=== PATIENT | female | born 1945 | race Caucasian/White ===

== ENCOUNTER → 2017-09-04 | Outpatient (CLI) | payer MEDICARE ==
[~2017-09-04] MED LIST: AMLO5TAB2 PO; ASCO10004 PO; ASPI-496 PO; ASPI-515 PO; ASPI-621 PO; ASPI325T17 PO; ATEN100T PO; CARV-39 PO; CELEBREX PO; CHOL10002 PO; GABAPENTIN PO; HYDR-3240 PO; IRBE1TAB13 PO; OLME40TA12 PO; OMEPRAZOLE PO; OXYB10TA PO; OXYC-302 PO; SIMV40TA3 PO; TYLENOL PO
[2017-09-04 11:40] LABS: MICROSCOPIC NOT IND
[2017-09-04 11:47] LABS: CULTURE INDICATED? NO
[2017-09-04 11:50] LABS: ALBUMIN 3.3 g/dL (3.4-5.0); ANION GAP 6 mmol/L (5-15); CALCIUM 8.6 mg/dL (8.5-10.1); CHLORIDE 108 mmol/L (98-107)
[2017-09-04 11:54] LABS: ALANINE AMINOTRANSFERASE 32 U/L (12-78); ALKALINE PHOSPHATASE 75 U/L (45-117); BILIRUBIN,TOTAL 1.2 mg/dL (0.2-1.0); CREATININE 0.77 mg/dL (0.55-1.02)
== END | disposition home or self-care (01) ==
LOC: STAR 10:37
PROVIDERS: ATTEND Orthopaedic Surgery
DX: Z01.818 Encounter for other preprocedural examination (principal); M19.012 Primary osteoarthritis, left shoulder; Z79.82 Long term (current) use of aspirin
CPT/HCPCS: 36415; 80053; 81003; 87081; 93005

== ENCOUNTER → 2017-09-05 | Outpatient (CLI) | payer MEDICARE | END | disposition home or self-care (01) | LOC: CFH 08:30 | PROVIDERS: ATTEND Nurse Practitioner | DX: Z12.31 Encounter for screening mammogram for malignant neoplasm of breast (principal); C22.8 Malignant neoplasm of liver, primary, unspecified as to type | CPT/HCPCS: 77067 ==

== ENCOUNTER → 2017-09-09 | Outpatient (CLI) | payer MEDICARE | LOC: CFH 14:43 | PROVIDERS: ATTEND Family Medicine | DX: J18.9 Pneumonia, unspecified organism (principal) | CPT/HCPCS: 71046 ==

== ENCOUNTER 2017-09-16 05:16 | Inpatient (IN) | payer MEDICARE ==
[~2017-09-16] VITALS: Ht 162.6 cm; Wt 131.7 kg
[2017-09-16] MEDS ORDERED: VANCOMYCIN PER PHARMACY MC STA (06:07)
[2017-09-16] MEDS ORDERED: LACTATED RINGERS 1,000 ML IV SCH (06:12)
[2017-09-16] MEDS ORDERED: MIDAZOLAM 1 MG/ML, 2ML ONE (06:20)
[2017-09-16] MEDS ORDERED: PROPOFOL 10 MG/ML, 20ML ONE (06:20)
[2017-09-16] MEDS ORDERED: ROCURONIUM 10 MG/ML,10ML ONE (06:20)
[2017-09-16] MEDS ORDERED: FENTANYL PF 250 MCG/5ML ONE (06:20)
[2017-09-16] MEDS ORDERED: BUPIVACAINE/PF 0.5% ONE (06:21)
[2017-09-16] MEDS ORDERED: CLINDAMYCIN 150 MG/ML, 6ML ONE (06:22)
[2017-09-16] MEDS ORDERED: VANCOMYCIN 1,800 MG in SODIUM CHLORIDE 0.9% 250 ML IV ONE (06:30)
[2017-09-16] MEDS ORDERED: DEXAMETHASONE 4 MG/ML, 1ML ONE (07:04)
[2017-09-16] MEDS ORDERED: METOCLOPRAMIDE 5 MG/ML, 2ML ONE (07:04)
[2017-09-16] MEDS ORDERED: ONDANSETRON 2MG/ML, 2ML ONE (07:04)
[2017-09-16] MEDS ORDERED: EPHEDRINE 50 MG/ML, 1ML IVPush PRN (07:30)
[2017-09-16] MEDS ORDERED: ONDANSETRON 2MG/ML, 2ML IVPush PRN (07:30)
[2017-09-16] MEDS ORDERED: ACETAMINOPHEN 325 MG TABLET PO PRN (07:30)
[2017-09-16] MEDS ORDERED: hydrALAzine 20 MG/ML, 1ML IV PRN (07:30)
[2017-09-16] MEDS ORDERED: FENTANYL PF 100 MCG/2ML IV PRN (07:30)
[2017-09-16] MEDS ORDERED: METOPROLOL 1 MG/ML, 5ML IV PRN (07:30)
[2017-09-16] MEDS ORDERED: HYDROmorphone 1 MG/ML, 1ML IV PRN (07:30)
[2017-09-16] MEDS ORDERED: LABETALOL 5MG/ML, 20ML IV PRN (07:30)
[2017-09-16] MEDS ORDERED: PROMETHAZINE 25 MG/ML, 1ML IV PRN (07:30)
[2017-09-16] MEDS ORDERED: ALBUTEROL SULFATE 2.5 MG/3 ML NPPB PRN (07:30)
[2017-09-16] MEDS ORDERED: OXYcodone 5 MG/5 ML ORAL.SOL UDC PO PRN (07:30)
[2017-09-16] MEDS: D5%-0.45% NACL 1,000 ML IV SCH ×2 (08:46→15:38)
[2017-09-16] MEDS: CARVEDILOL 25 MG TABLET PO SCH ×2 (09:00→20:34)
[2017-09-16] MEDS ORDERED: BISACODYL 10 MG SUPP PR PRN (09:00)
[2017-09-16] MEDS ORDERED: MAGNESIUM HYDROXIDE 8%, 30ML UDC PO PRN (09:00)
[2017-09-16] MEDS ORDERED: HYDROcodone/APAP 5/325 TABLET PO PRN (09:00)
[2017-09-16] MEDS: DOCUSATE 100 MG CAPSULE PO SCH ×2 (09:00→20:34)
[2017-09-16] MEDS: [UNRECOGNIZED DRUG - OTHER] PO SCH (09:00)
[2017-09-16] MEDS: KETOROLAC 30 MG/1 ML IV SCH ×2 (09:00→17:33)
[2017-09-16] MEDS ORDERED: morphine SULFATE 10 MG/ML, 1ML IV PRN (09:00)
[2017-09-16] MEDS: IRBESARTAN PO SCH (09:00)
[2017-09-16] MEDS ORDERED: PROMETHAZINE 25 MG/ML, 1ML IM PRN (09:00)
[2017-09-16] MEDS ORDERED: ONDANSETRON 2MG/ML, 2ML IV PRN (09:00)
[2017-09-16] MEDS: HYDROCHLOROTHIAZIDE PO SCH (09:00)
[2017-09-16] MEDS: ASPIRIN 81 MG TABLET EC PO SCH (09:00)
[2017-09-16] MEDS: MULTIVITAMINS/MINERALS TABLET PO SCH (09:00)
[2017-09-16] MEDS ORDERED: DIPHENHYDRAMINE 25 MG CAPSULE PO PRN (09:00)
[2017-09-16] MEDS ORDERED: ALUMINUM/MAG/SIMETHICONE 30 ML UDC PO PRN (09:00)
[2017-09-16] MEDS ORDERED: OXYcodone/APAP 5/325MG TABLET PO PRN (09:00)
[2017-09-16] MEDS: AMLODIPINE 5 MG TABLET PO SCH (09:00)
[2017-09-16] MEDS: TEMPLATE NON-FORMULARY MED. (Oxybutynin Chloride** (Oxybutynin Chloride Er**) 10 MG) PO SCH (09:00)
[2017-09-16] MEDS ORDERED: SENNA/DOCUSATE TABLET PO PRN (09:00)
[2017-09-16] MEDS: CHOLECALCIFEROL 1,000 UNIT TABLET PO SCH (09:00)
[2017-09-16] MEDS: OXYcodone/APAP 10/325MG TABLET PO SCH ×4 (12:36→23:05)
[2017-09-16 13:00] VITALS: BP 137/85
[2017-09-16] MEDS ORDERED: GLYCOPYRROLATE 0.2MG/1ML, 5ML ONE (15:32)
[2017-09-16] MEDS ORDERED: NEOSTIGMINE 1 MG/ML, 10ML ONE (15:32)
[2017-09-16] MEDS: CEFAZOLIN PMX 2GM/50ML 50 ML IVPB SCH ×2 (15:47→23:12)
[2017-09-16 19:05] VITALS: BP 132/76
[2017-09-16] MEDS ORDERED: SIMVASTATIN 40 MG TABLET PO SCH (21:00)
[2017-09-17 00:15] VITALS: BP 131/83
[2017-09-17] MEDS: D5%-0.45% NACL 1,000 ML IV SCH ×2 (00:35→07:54)
[2017-09-17] MEDS: KETOROLAC 30 MG/1 ML IV SCH (01:18)
[2017-09-17] MEDS: OXYcodone/APAP 10/325MG TABLET PO SCH ×3 (03:05→09:42)
[2017-09-17 04:15] VITALS: BP 137/86
[2017-09-17 06:45] VITALS: BP 106/72
[2017-09-17] MEDS: CEFAZOLIN PMX 2GM/50ML 50 ML IVPB SCH (07:55)
[2017-09-17] MEDS: TEMPLATE NON-FORMULARY MED. (Oxybutynin Chloride** (Oxybutynin Chloride Er**) 10 MG) PO SCH (08:38)
[2017-09-17] MEDS: ASPIRIN 81 MG TABLET EC PO SCH (08:38)
[2017-09-17] MEDS: CARVEDILOL 25 MG TABLET PO SCH (08:38)
[2017-09-17] MEDS: CHOLECALCIFEROL 1,000 UNIT TABLET PO SCH (08:38)
[2017-09-17] MEDS: AMLODIPINE 5 MG TABLET PO SCH (08:38)
[2017-09-17] MEDS: DOCUSATE 100 MG CAPSULE PO SCH (08:38)
[2017-09-17] MEDS: MULTIVITAMINS/MINERALS TABLET PO SCH (08:38)
[2017-09-17] MEDS: [UNRECOGNIZED DRUG - OTHER] PO SCH (08:39)
[2017-09-17] MEDS: IRBESARTAN PO SCH (08:39)
[2017-09-17] MEDS: HYDROCHLOROTHIAZIDE PO SCH (08:39)
== END 2017-09-17 10:30 | disposition home or self-care (01) | DRG 483 ==
LOC: ORIP 05:16 → 4NOR 10:24 → DCLOUNGE 09-17 10:20
PROVIDERS: ADMIT Orthopaedic Surgery; ATTEND Orthopaedic Surgery
PROC: 0LS40ZZ Reposition Left Upper Arm Tendon, Open Approach (ICD-10-PCS; 2017-09-16)
PROC: 0RRK0JZ Replacement of Left Shoulder Joint with Synthetic Substitute, Open Approach (ICD-10-PCS; principal; 2017-09-16 07:00)
DX: M19.012 Primary osteoarthritis, left shoulder (principal); E66.01 Morbid (severe) obesity due to excess calories; Z68.42 Body mass index [BMI] 45.0-49.9, adult; M65.812 Other synovitis and tenosynovitis, left shoulder
CPT/HCPCS: C1713; C1776; J0690; J1100; J1885; J2250; J2405; J2704; J2710; J3010; J3370; J3490; J2765; J7050; J7120

== ENCOUNTER 2018-08-27 11:12 | Outpatient (CLI) | payer MEDICARE ==
[~2018-08-27 11:12] MED LIST changes: +AMLO-150 PO; -AMLO5TAB2 PO; -ASPI-621 PO; +ASPI81TA45 PO
== END 2018-08-27 23:59 | disposition home or self-care (01) ==
LOC: STAR 11:12
PROVIDERS: ATTEND Orthopaedic Surgery
DX: Z01.818 Encounter for other preprocedural examination (principal); M19.011 Primary osteoarthritis, right shoulder
CPT/HCPCS: 87081; 93005

== ENCOUNTER 2018-09-03 07:40 | Inpatient (IN) | payer MEDICARE ==
[~2018-09-03] VITALS: Ht 162.6 cm; Wt 124.2 kg
[~2018-09-03 07:40] MED LIST changes: +CLINDAMYCIN 150 MG/ML, 6ML ONE
[2018-09-03] MEDS ORDERED: GABAPENTIN 300 MG CAPSULE PO ONE (08:00)
[2018-09-03] MEDS ORDERED: ACETAMINOPHEN 500 MG TABLET PO ONE (08:00)
[2018-09-03 08:05] VITALS: BP 129/69
[2018-09-03] MEDS ORDERED: LACTATED RINGERS 1,000 ML IV SCH (08:11)
[2018-09-03] MEDS ORDERED: FENTANYL PF 250 MCG/5ML ONE (08:29)
[2018-09-03] MEDS ORDERED: MIDAZOLAM 1 MG/ML, 2ML ONE (08:29)
[2018-09-03] MEDS ORDERED: SENNA/DOCUSATE TABLET PO PRN (09:30)
[2018-09-03] MEDS ORDERED: morphine SULFATE 10 MG/ML, 1ML IV PRN (09:30)
[2018-09-03] MEDS ORDERED: BISACODYL 10 MG SUPP PR PRN (09:30)
[2018-09-03] MEDS ORDERED: ACETAMINOPHEN 325 MG TABLET PO PRN (09:30)
[2018-09-03] MEDS ORDERED: ONDANSETRON 2MG/ML, 2ML IV PRN (09:30)
[2018-09-03] MEDS: KETOROLAC 30 MG/1 ML IV SCH ×2 (09:30→17:25)
[2018-09-03] MEDS ORDERED: DIPHENHYDRAMINE 25 MG CAPSULE PO PRN (09:30)
[2018-09-03] MEDS ORDERED: LABETALOL 5MG/ML, 20ML IV PRN (10:00)
[2018-09-03] MEDS ORDERED: ALBUTEROL SULFATE 2.5 MG/3 ML NPPB PRN (10:00)
[2018-09-03] MEDS ORDERED: OXYcodone 5 MG/5 ML ORAL.SOL UDC PO PRN (10:00)
[2018-09-03] MEDS ORDERED: PROMETHAZINE 25 MG/ML, 1ML IV PRN (10:00)
[2018-09-03] MEDS ORDERED: FENTANYL PF 100 MCG/2ML IV PRN (10:00)
[2018-09-03] MEDS ORDERED: HYDROmorphone 2 MG/ML, 1ML IVPush PRN (10:00)
[2018-09-03] MEDS ORDERED: hydrALAzine 20 MG/ML, 1ML IV PRN (10:00)
[2018-09-03] MEDS ORDERED: HALOPERIDOL 5 MG/ML IV PRN (10:00)
[2018-09-03] MEDS: HYDROcodone/APAP 5/325 TABLET PO SCH ×3 (11:00→20:07)
[2018-09-03] MEDS ORDERED: hydrALAzine 20 MG/ML, 1ML ONE (11:55)
[2018-09-03 12:55] VITALS: BP 133/92
[2018-09-03] MEDS: D5%-0.45% NACL 1,000 ML IV SCH (13:29)
[2018-09-03 14:40] VITALS: BP 138/79
[2018-09-03] MEDS ORDERED: PROPOFOL 10 MG/ML, 20ML ONE (14:44)
[2018-09-03] MEDS ORDERED: EPHEDRINE 50 MG/ML, 1ML ONE (14:44)
[2018-09-03] MEDS ORDERED: DEXAMETHASONE 4 MG/ML, 1ML ONE (14:44)
[2018-09-03] MEDS ORDERED: ROCURONIUM 10MG/ML,5ML ONE (14:44)
[2018-09-03] MEDS: CEFAZOLIN PMX 2GM/50ML 50 ML IVPB SCH ×2 (15:05→23:13)
[2018-09-03] MEDS: DOCUSATE 100 MG CAPSULE PO SCH (20:07)
[2018-09-03] MEDS: CARVEDILOL 25 MG TABLET PO SCH (20:07)
[2018-09-03 20:23] VITALS: BP 118/64
[2018-09-04] MEDS: HYDROcodone/APAP 5/325 TABLET PO SCH ×3 (00:20→08:17)
[2018-09-04] MEDS: KETOROLAC 30 MG/1 ML IV SCH (00:30)
[2018-09-04] MEDS: D5%-0.45% NACL 1,000 ML IV SCH ×2 (00:46→08:17)
[2018-09-04 00:57] VITALS: BP 124/75
[2018-09-04 08:15] VITALS: BP 121/74
[2018-09-04] MEDS: DOCUSATE 100 MG CAPSULE PO SCH (08:17)
[2018-09-04] MEDS: CARVEDILOL 25 MG TABLET PO SCH (08:17)
[2018-09-04] MEDS: CEFAZOLIN PMX 2GM/50ML 50 ML IVPB SCH (08:17)
[2018-09-04] MEDS ORDERED: AMLODIPINE 5 MG TABLET PO SCH (09:00)
[2018-09-04] MEDS ORDERED: SIMVASTATIN 40 MG TABLET PO SCH (09:00)
[2018-09-04] MEDS ORDERED: ASPIRIN 81 MG TABLET EC PO SCH (09:00)
== END 2018-09-04 09:30 | disposition home or self-care (01) | DRG 483 ==
LOC: ORIP 07:40 → 4NOR 12:48 → DCLOUNGE 09-04 09:20
PROVIDERS: ADMIT Orthopaedic Surgery; ATTEND Orthopaedic Surgery
PROC: 0RRJ0JZ Replacement of Right Shoulder Joint with Synthetic Substitute, Open Approach (ICD-10-PCS; 2018-09-03)
PROC: 0LS30ZZ Reposition Right Upper Arm Tendon, Open Approach (ICD-10-PCS; 2018-09-03)
PROC: 3E0T3BZ Introduction of Anesthetic Agent into Peripheral Nerves and Plexi, Percutaneous Approach (ICD-10-PCS; 2018-09-03)
PROC: 5A09357 Assistance with Respiratory Ventilation, Less than 24 Consecutive Hours, Continuous Positive Airway Pressure (ICD-10-PCS; principal; 2018-09-04)
DX: M19.011 Primary osteoarthritis, right shoulder (principal); Z68.42 Body mass index [BMI] 45.0-49.9, adult; M65.811 Other synovitis and tenosynovitis, right shoulder; E66.9 Obesity, unspecified; I10 Essential (primary) hypertension; E78.5 Hyperlipidemia, unspecified
CPT/HCPCS: C1713; C1776; G0378; J0690; J1100; J1885; J2250; J2704; J3010; J0360; J7120

== ENCOUNTER → 2018-11-11 | Outpatient (CLI) | payer MEDICARE ==
[~2018-11-11] MED LIST changes: -CLINDAMYCIN 150 MG/ML, 6ML ONE
== END | disposition home or self-care (01) ==
LOC: CFH 14:12
PROVIDERS: ATTEND Nurse Practitioner
DX: Z12.31 Encounter for screening mammogram for malignant neoplasm of breast (principal)
CPT/HCPCS: 77067

== ENCOUNTER 2019-03-22 09:33 | Outpatient (CLI) | payer MEDICARE ==
[~2019-03-22 09:33] MED LIST changes: -OXYB10TA PO; +OXYB10TA2 PO
[2019-05-17] MEDS ORDERED: OXYB5TAB7 PO (10:56)
== END 2019-03-22 23:59 | disposition home or self-care (01) ==
LOC: CFH 09:33
PROVIDERS: ATTEND Nurse Practitioner
DX: R91.8 Other nonspecific abnormal finding of lung field (principal); D35.02 Benign neoplasm of left adrenal gland; I10 Essential (primary) hypertension; G47.33 Obstructive sleep apnea (adult) (pediatric); E66.01 Morbid (severe) obesity due to excess calories; Z96.611 Presence of right artificial shoulder joint
CPT/HCPCS: 71250

== ENCOUNTER 2020-05-29 11:59 | Inpatient (IN) | payer MEDICARE ==
[~2020-05-29] VITALS: Ht 162.6 cm; Wt 104.7 kg
[~2020-05-29 11:59] MED LIST changes: +ASCO100018 PO; -ASCO10004 PO; -OXYB10TA2 PO; +OXYB10TA26 PO; +OXYB5TAB10 PO; +SIMV40TA20 PO; -SIMV40TA3 PO
[2020-05-29 12:42] LABS: BASOPHILS % (AUTO) 1 % (0-1); EOSINOPHILS % (AUTO) 0 % (1-7); LYMPHOCYTES % (AUTO) 15 % (22-44); MEAN CORPUSCULAR HEMOGLOBIN 30.6 pg (27.0-34.8); MEAN PLATELET VOLUME 9.7 fL (7.4-10.4); MONOCYTES % (AUTO) 8 % (2-9); NEUTROPHILS % (AUTO) 77 % (42-75); PLATELET COUNT 233 x10^3/uL (130-400); RED CELL DISTRIBUTION WIDTH 13.9 % (9.6-15.2)
[2020-05-29 12:44] LABS: MD NO
[2020-05-29 12:54] LABS: ALBUMIN 3.6 g/dL (3.4-5.0); ANION GAP 3 mmol/L (5-15); CALCIUM 10.3 mg/dL (8.5-10.1); CHLORIDE 110 mmol/L (98-107); CREATININE 0.72 mg/dL (0.55-1.02)
[2020-05-29 13:00] LABS: MICROSCOPIC INDICATED
[2020-05-29 13:01] LABS: ALANINE AMINOTRANSFERASE 1159 U/L (12-78); ALKALINE PHOSPHATASE 139 U/L (45-117); BILIRUBIN,TOTAL 2.2 mg/dL (0.2-1.0); TOTAL PROTEIN 7.1 g/dL (6.4-8.2)
[2020-05-29 13:26] LABS: TROPONIN I < 0.015 ng/mL (0.000-0.045)
--- NOTE | 2020-05-29 13:48 | NUR ---
Break RN note: Pt ambulatory to bathroom and back to bed without difficulty, gait steady. Pt able to position self for comfort in bed, provided with warm blanket per request. Pt denies other needs.
--- NOTE | 2020-05-29 14:32 | NUR ---
PT TO GO TO MRI HOWEVER MRI CALLED TO INFORM IT WILL BE APPROX 1H DUE TO PROCEDURE IN ROOM AT THIS TIME.
--- NOTE | 2020-05-29 15:24 | NUR ---
PT TO MRI
--- NOTE | 2020-05-29 16:40 | NUR ---
report to robe SAMUELS
--- NOTE | 2020-05-29 17:18 | NUR ---
PT TO OR
[2020-05-29] MEDS ORDERED: SUCCINYLCHOLINE 20 MG/ML, 10ML ONE ×2 (17:24)
[2020-05-29] MEDS ORDERED: PROPOFOL 10 MG/ML, 20ML ONE (17:24)
[2020-05-29] MEDS ORDERED: ROCURONIUM 10MG/ML,5ML ONE (17:24)
[2020-05-29] MEDS ORDERED: FENTANYL PF 250 MCG/5ML ONE (17:24)
[2020-05-29] MEDS ORDERED: MIDAZOLAM 1 MG/ML, 2ML ONE (17:24)
[2020-05-29] MEDS ORDERED: EPINEPHRINE 1 MG/ML, 1ML ONE (17:28)
[2020-05-29] MEDS ORDERED: BUPIVACAINE/PF 0.5% ONE (17:28)
[2020-05-29] MEDS ORDERED: ONDANSETRON 2MG/ML, 2ML ONE (17:32)
[2020-05-29] MEDS ORDERED: DEXAMETHASONE 4 MG/ML, 1ML ONE (17:32)
[2020-05-29] MEDS ORDERED: ACETAMINOPHEN 325 MG TABLET PO PRN (18:00)
[2020-05-29] MEDS ORDERED: OXYcodone 5 MG/5 ML ORAL.SOL UDC PO PRN (18:00)
[2020-05-29] MEDS ORDERED: HYDROmorphone 1 MG/ML, 1ML INJ IVPush PRN (18:00)
[2020-05-29] MEDS ORDERED: hydrALAzine 20 MG/ML, 1ML IV PRN (18:00)
[2020-05-29] MEDS ORDERED: LABETALOL 5MG/ML, 20ML IV PRN (18:00)
[2020-05-29] MEDS ORDERED: ONDANSETRON 2MG/ML, 2ML IVPush PRN (18:00)
[2020-05-29] MEDS ORDERED: FENTANYL PF 100 MCG/2ML IV PRN (18:00)
[2020-05-29] MEDS ORDERED: PROMETHAZINE 25 MG/ML, 1ML IVPush PRN (18:00)
[2020-05-29] MEDS ORDERED: OMNIPAQUE 350 MG/ML, 50 ML BOTTLE ONE ×2 (18:00)
[2020-05-29] MEDS ORDERED: OMNIPAQUE 350 MG/ML, 50 ML BOTTLE IV ONE (18:14)
[2020-05-29] MEDS ORDERED: KETOROLAC 30 MG/1 ML ONE (18:20)
[2020-05-29] MEDS ORDERED: GLYCOPYRROLATE 0.2MG/1ML, 5ML IVPush ONE (19:30)
[2020-05-29 20:10] VITALS: BP 143/86
[2020-05-29] MEDS ORDERED: ENALAPRILAT 1.25 MG/ML, 2ML IVPush PRN (20:30)
[2020-05-29] MEDS ORDERED: MELATONIN 5 MG TABLET PO PRN (20:30)
[2020-05-29] MEDS ORDERED: DOCUSATE 100 MG CAPSULE PO PRN (20:30)
[2020-05-29] MEDS ORDERED: HYDROcodone/APAP 5/325 TABLET PO PRN (20:30)
[2020-05-29] MEDS ORDERED: LIDODERM 5% PATCH TD PRN (20:30)
[2020-05-29] MEDS ORDERED: ONDANSETRON ODT 4 MG PO PRN (20:30)
[2020-05-29] MEDS: CARVEDILOL 25 MG TABLET PO SCH (21:38)
[2020-05-29] MEDS: ACETAMINOPHEN 325 MG TABLET PO PRN (22:16)
[2020-05-29] MEDS ORDERED: LORazepam 0.5MG TABLET PO ONE (22:30)
[2020-05-30 00:16] VITALS: BP 133/81
[2020-05-30] MEDS ORDERED: OXYcodone/APAP 5/325MG TABLET PO PRN (00:30)
[2020-05-30 05:19] LABS: BASOPHILS % (AUTO) 1 % (0-1); EOSINOPHILS % (AUTO) 0 % (1-7); LYMPHOCYTES % (AUTO) 7 % (22-44); MEAN CORPUSCULAR HEMOGLOBIN 30.7 pg (27.0-34.8); MEAN CORPUSCULAR HGB CONC 32.9 g/dL (32.4-35.8); MEAN PLATELET VOLUME 10.5 fL (7.4-10.4); MONOCYTES % (AUTO) 7 % (2-9); NEUTROPHILS % (AUTO) 85 % (42-75); PLATELET COUNT 215 x10^3/uL (130-400); RED CELL DISTRIBUTION WIDTH 13.7 % (9.6-15.2)
[2020-05-30 05:22] LABS: ALBUMIN 3.2 g/dL (3.4-5.0); CHLORIDE 108 mmol/L (98-107)
[2020-05-30 05:34] LABS: ANION GAP 5 mmol/L (5-15); CREATININE 0.63 mg/dL (0.55-1.02)
[2020-05-30 05:35] LABS: ALANINE AMINOTRANSFERASE 1036 U/L (12-78); ALKALINE PHOSPHATASE 168 U/L (45-117); TOTAL PROTEIN 6.4 g/dL (6.4-8.2)
[2020-05-30] MEDS: CARVEDILOL 25 MG TABLET PO SCH ×2 (05:40→18:29)
[2020-05-30 05:59] LABS: MD SCAN
[2020-05-30 07:38] VITALS: BP 145/85
[2020-05-30] MEDS: AMLODIPINE 5 MG TABLET PO SCH (07:56)
[2020-05-30] MEDS ORDERED: SIMVASTATIN 40 MG TABLET PO SCH ×2 (09:00→21:00)
[2020-05-30 12:43] VITALS: BP 127/80
[2020-05-30 16:40] VITALS: BP 103/61
[2020-05-30 18:28] VITALS: BP 149/82
[2020-05-31 01:29] VITALS: BP 137/84
[2020-05-31] MEDS: ACETAMINOPHEN 325 MG TABLET PO PRN (04:06)
[2020-05-31 05:43] LABS: ANION GAP 5 mmol/L (5-15); CALCIUM 8.5 mg/dL (8.5-10.1); CHLORIDE 109 mmol/L (98-107)
[2020-05-31 05:44] LABS: BASOPHILS % (AUTO) 1 % (0-1); EOSINOPHILS % (AUTO) 7 % (1-7); LYMPHOCYTES % (AUTO) 16 % (22-44); MEAN CORPUSCULAR HEMOGLOBIN 30.7 pg (27.0-34.8); MEAN CORPUSCULAR HGB CONC 32.8 g/dL (32.4-35.8); MEAN PLATELET VOLUME 10.4 fL (7.4-10.4); MONOCYTES % (AUTO) 9 % (2-9); NEUTROPHILS % (AUTO) 68 % (42-75); PLATELET COUNT 214 x10^3/uL (130-400); RED BLOOD COUNT 4.35 x10^6/uL (3.82-5.3); RED CELL DISTRIBUTION WIDTH 14.4 % (9.6-15.2)
[2020-05-31 05:47] LABS: ALANINE AMINOTRANSFERASE 671 U/L (12-78); ALKALINE PHOSPHATASE 160 U/L (45-117); BILIRUBIN,TOTAL 1.1 mg/dL (0.2-1.0); CREATININE 0.63 mg/dL (0.55-1.02); TOTAL PROTEIN 6.3 g/dL (6.4-8.2)
[2020-05-31 05:57] LABS: MD NO
[2020-05-31] MEDS: CARVEDILOL 25 MG TABLET PO SCH (07:07)
[2020-05-31 08:33] VITALS: BP 149/98
[2020-05-31] MEDS: AMLODIPINE 5 MG TABLET PO SCH (11:27)
[2020-05-31 11:28] VITALS: BP 166/63
[2020-05-31 12:47] VITALS: BP 159/80
== END 2020-05-31 13:09 | disposition home or self-care (01) | DRG 419 ==
LOC: ED 13:09 → EDIP 14:17 → 3N 20:06 → 4NE 05-30 14:50 → DCLOUNGE 05-31 13:02
PROVIDERS: ADMIT Internal Medicine; ATTEND Hospitalist
PROC: BF131ZZ Fluoroscopy of Gallbladder and Bile Ducts using Low Osmolar Contrast (ICD-10-PCS; 2020-05-29)
PROC: 0FT44ZZ Resection of Gallbladder, Percutaneous Endoscopic Approach (ICD-10-PCS; principal; 2020-05-29 17:30)
DX: K80.01 Calculus of gallbladder with acute cholecystitis with obstruction (principal); E78.5 Hyperlipidemia, unspecified; F43.21 Adjustment disorder with depressed mood; E83.52 Hypercalcemia; R74.01 Elevation of levels of liver transaminase levels; E66.01 Morbid (severe) obesity due to excess calories; Z68.39 Body mass index [BMI] 39.0-39.9, adult; Z20.828 Contact with and (suspected) exposure to other viral communicable diseases; Z82.5 Family history of asthma and other chronic lower respiratory diseases; Z82.49 Family history of ischemic heart disease and other diseases of the circulatory system; Z80.0 Family history of malignant neoplasm of digestive organs; Z79.82 Long term (current) use of aspirin; Z96.619 Presence of unspecified artificial shoulder joint; I10 Essential (primary) hypertension; E78.00 Pure hypercholesterolemia, unspecified
CPT/HCPCS: 36415; 74181; 74300; 76700; 80053; 81001; 83690; 84484; 85025; 87086; 87635; 88304; 93005; 99285; G0378; J0171; J1100; J1885; J2250; J2405; J2704; J3010; Q9967; J0330

== ENCOUNTER → 2021-02-02 | Outpatient (CLI) | payer MEDICARE ==
[~2021-02-02] MED LIST changes: -ASPI-515 PO; +ASPI-963 PO; +HYDR-2214 PO; -HYDR-3240 PO; -OXYC-302 PO; +OXYC1TAB14 PO
== END | disposition home or self-care (01) ==
LOC: CFH 07:55
PROVIDERS: ATTEND Internal Medicine
DX: Z12.31 Encounter for screening mammogram for malignant neoplasm of breast (principal); Z13.820 Encounter for screening for osteoporosis; N95.9 Unspecified menopausal and perimenopausal disorder
CPT/HCPCS: 77063; 77067; 77080